=== PATIENT | female | born 1930 | race Caucasian/White ===

== ENCOUNTER 2017-06-23 04:08 | Inpatient (IN) | payer MEDICARE, OTHER ==
[~2017-06-23] VITALS: Ht 149.9 cm; Wt 41.2 kg
[2017-06-23] MEDS ORDERED: LISI-661 PO (04:31)
[2017-06-23] MEDS ORDERED: SITA1TBM4 PO (04:31)
[2017-06-23] MEDS ORDERED: VITAD50000 PO (04:31)
[2017-06-23] MEDS ORDERED: NIFE30TA26 PO (04:31)
[2017-06-23] MEDS ORDERED: OMEP20 PO (04:31)
[2017-06-23] MEDS ORDERED: OMEG-135 PO (04:31)
[2017-06-23] MEDS ORDERED: LEVO500 PO (04:31)
[2017-06-23] MEDS ORDERED: [UNRECOGNIZED DRUG - OTHER] INJ (04:31)
[2017-06-23 05:18] LABS: HEMATOCRIT 36.6 % (36-46); HEMOGLOBIN 12.3 g/dL (12.0-16.0); MEAN CORPUSCULAR HEMOGLOBIN 27.3 pg (26.0-34.0); MEAN CORPUSCULAR HGB CONC 33.5 G/dL (31.0-37.0); MEAN CORPUSCULAR VOLUME 82 fL (80-100); PLATELET COUNT (AUTO) 244 K/uL (150-450); RED BLOOD CELL COUNT(AUTO) 4.49 MIL/uL (4.00-5.20); RED CELL DISTRIBUTION WIDTH 13.6 % (11.5-14.5)
[2017-06-23 05:29] LABS: CALCIUM, TOTAL 9.2 mg/dL (8.8-10.5); CREATININE 1.41 mg/dL (0.60-1.30); POTASSIUM 4.2 mmol/L (3.5-5.1)
[2017-06-23 05:33] LABS: ALBUMIN 3.4 g/dL (3.4-5.0); BILIRUBIN,TOTAL 0.3 mg/dL (0.1-1.0); TOTAL PROTEIN, SERUM 7.8 g/dL (6.4-8.2)
[2017-06-23 05:45] LABS: BAND NEUTROPHILS % (MANUAL) 14 % (1-5); EOSINOPHILS % (MANUAL) 1 % (1-6); LYMPHOCYTES % (MANUAL) 15 % (22-44); MONOCYTES % (MANUAL) 1 % (2-9); SEGMENTED NEUTROPHILS % 69 % (40-70)
[2017-06-23] MEDS ORDERED: MetroNIDAZOLE 500 MG/NACL 100 ML IV ONE (06:30)
[2017-06-23] MEDS ORDERED: SODIUM CHLORIDE 0.9% 1,000 ML IV ONE ×3 (06:30→08:15)
[2017-06-23] MEDS ORDERED: CIPROFLOXACIN 400 MG/D5% WATER 200 ML IV ONE (06:30)
[2017-06-23 07:32] LABS: LACTIC ACID 3.4 mmol/L (0.4-2.0)
[2017-06-23] MEDS ORDERED: 0.9% SODIUM CHLORIDE 10 ML SYRINGE IVP PRN (08:45)
[2017-06-23] MEDS ORDERED: ONDANSETRON HCL 4 MG/2 ML VIAL IVP PRN ×2 (08:45→17:15)
[2017-06-23] MEDS ORDERED: ACETAMINOPHEN 325 MG TABLET PO PRN ×2 (08:45→17:15)
[2017-06-23 10:01] LABS: APPEARANCE,URINE CLEAR (CLEAR); BILIRUBIN,URINE NEGATIVE (NEGATIVE); GLUCOSE, URINE (UA) >=1000 mg/dL (NEGATIVE); KETONES,URINE NEGATIVE (NEGATIVE); LEUKOCYTE ESTERASE ,URINE NEGATIVE (NEGATIVE); NITRATE,URINE POSITIVE (NEGATIVE); OCCULT BLOOD,URINE TRACE (NEGATIVE); PROTEIN,URINE NEGATIVE (NEGATIVE); UROBILINOGEN,URINE 0.2 mg/dL (<=1.0)
[2017-06-23 10:29] LABS: BACTERIA,URINE Many /HPF (None Seen); SQUAMOUS EPITHELIAL CELL,UR Few /LPF (None Seen)
[2017-06-23] MEDS ORDERED: INSU100C14 SQ (11:24)
[2017-06-23 11:55] VITALS: BP 111/55
[2017-06-23 14:59] VITALS: BP 108/51
[2017-06-23] MEDS ORDERED: INFLUENZA VIRUS VACCINE QVS 2017-18 (3YR+)/PF 60 MCG/0.5 ML SYRINGE IM ONE (16:00)
[2017-06-23] MEDS ORDERED: MAGNESIUM HYDROXIDE SUSPENSION 30 ML UDCUP PO PRN (17:15)
[2017-06-23] MEDS ORDERED: ZOLPIDEM TARTRATE 5 MG TABLET PO PRN (17:15)
[2017-06-23] MEDS ORDERED: BISACODYL 10 MG RECTAL RECTAL SUPPOSITORY PR PRN (17:15)
[2017-06-23] MEDS ORDERED: MORPHINE SULFATE 2 MG/ML SYRINGE IVP PRN (17:15)
[2017-06-23] MEDS ORDERED: IPRATROPIUM BROMIDE 0.5 MG/2.5 ML NEB SOLUTION NEB PRN (17:15)
[2017-06-23] MEDS ORDERED: ALBUTEROL SULFATE 2.5 MG/0.5 ML NEB SOLUTION NEB PRN (17:15)
[2017-06-23] MEDS: CefTRIAXone 1 GM/DEXTROSE 50 ML IV SCH (19:03)
[2017-06-23 19:39] VITALS: BP 95/47
[2017-06-23] MEDS ORDERED: DEXTROSE 50%-WATER 25 GM/50 ML SYRINGE IVP PRN (20:00)
[2017-06-23 20:13] LABS: GLUCOMETER DEV NAME(LOC) 5S 2N; GLUCOSE,POINT OF CARE 271 MG/DL (70-110)
[2017-06-23 20:13] LABS: GLUCOMETER DEV NAME(LOC) 5S 2N; GLUCOSE,POINT OF CARE 297 MG/DL (70-110)
[2017-06-23] MEDS: DOCUSATE SODIUM 100 MG CAPSULE PO SCH (21:14)
[2017-06-23] MEDS: MetroNIDAZOLE 500 MG/NACL 100 ML IV SCH (21:14)
[2017-06-23] MEDS: HYDROCODONE/ACETAMINOPHEN 5-325 MG TABLET PO PRN (21:19)
[2017-06-23] MEDS: INSULIN ASPART 100 UNITS/ML SQ PRN (21:41)
[2017-06-23 23:47] VITALS: BP 95/49
[2017-06-24] MEDS: HEPARIN SODIUM,PORCINE 5,000 UNITS/ML VIAL SQ SCH ×4 (00:17→23:31)
[2017-06-24] MEDS: MetroNIDAZOLE 500 MG/NACL 100 ML IV SCH ×3 (04:48→21:29)
[2017-06-24] MEDS: HYDROCODONE/ACETAMINOPHEN 5-325 MG TABLET PO PRN (05:14)
[2017-06-24 05:18] VITALS: BP 100/63
[2017-06-24] MEDS: INSULIN ASPART 100 UNITS/ML SQ PRN ×4 (06:08→20:25)
[2017-06-24 07:25] VITALS: BP 95/48
[2017-06-24] MEDS: OMEGA-3/DHA/EPA/FISH OIL 1,000 MG CAPSULE PO SCH (07:32)
[2017-06-24] MEDS: PANTOPRAZOLE SODIUM 40 MG/VIAL IVP SCH (07:32)
[2017-06-24] MEDS: DOCUSATE SODIUM 100 MG CAPSULE PO SCH ×2 (07:32→20:22)
[2017-06-24] MEDS: LISINOPRIL 10 MG TABLET PO SCH (07:33)
[2017-06-24 07:41] LABS: EOSINOPHILS % (AUTO) 0.4 % (1.0-6.0); HEMATOCRIT 30.7 % (36-46); HEMOGLOBIN 10.3 g/dL (12.0-16.0); LYMPHOCYTES % (AUTO) 5.8 % (22.0-44.0); MEAN CORPUSCULAR HEMOGLOBIN 27.5 pg (26.0-34.0); MEAN CORPUSCULAR HGB CONC 33.4 G/dL (31.0-37.0); MEAN CORPUSCULAR VOLUME 82 fL (80-100); MONOCYTES # (AUTO) 0.9 K/uL (0.1-1.0); NEUTROPHILS # (AUTO) 15.1 K/uL (1.8-7.7); PLATELET COUNT (AUTO) 179 K/uL (150-450); RED BLOOD CELL COUNT(AUTO) 3.73 MIL/uL (4.00-5.20); RED CELL DISTRIBUTION WIDTH 14.2 % (11.5-14.5)
[2017-06-24 07:52] LABS: ALBUMIN 2.4 g/dL (3.4-5.0); BILIRUBIN,TOTAL 0.3 mg/dL (0.1-1.0); CALCIUM, TOTAL 7.8 mg/dL (8.8-10.5); CREATININE 1.19 mg/dL (0.60-1.30); POTASSIUM 3.6 mmol/L (3.5-5.1); TOTAL PROTEIN, SERUM 5.8 g/dL (6.4-8.2)
[2017-06-24 08:15] LABS: NEUTROPHILS % (AUTO) 88.8 % (40.0-70.0)
[2017-06-24] MEDS ORDERED: OMEPRAZOLE 20 MG CAPSULE PO SCH (09:00)
[2017-06-24 11:05] VITALS: BP 99/51
[2017-06-24 15:32] VITALS: BP 99/52
[2017-06-24 17:20] LABS: PLATELET MORPHOLOGY COMMENT NORMAL
[2017-06-24] MEDS: CefTRIAXone 1 GM/DEXTROSE 50 ML IV SCH (17:24)
[2017-06-24 19:37] VITALS: BP 130/67
[2017-06-24 23:40] VITALS: BP 117/56
[2017-06-25 03:38] LABS: GLUCOMETER DEV NAME(LOC) 5S 1L; GLUCOSE,POINT OF CARE 168 MG/DL (70-110)
[2017-06-25] MEDS: MetroNIDAZOLE 500 MG/NACL 100 ML IV SCH ×3 (03:38→21:07)
[2017-06-25 03:39] LABS: GLUCOMETER DEV NAME(LOC) 5S 1L; GLUCOSE,POINT OF CARE 176 MG/DL (70-110)
[2017-06-25 04:40] VITALS: BP 130/64
[2017-06-25] MEDS: INSULIN ASPART 100 UNITS/ML SQ PRN ×4 (06:20→21:19)
[2017-06-25 07:25] VITALS: BP 123/55
[2017-06-25] MEDS: HEPARIN SODIUM,PORCINE 5,000 UNITS/ML VIAL SQ SCH ×2 (09:03→17:58)
[2017-06-25] MEDS: PANTOPRAZOLE SODIUM 40 MG/VIAL IVP SCH (09:03)
[2017-06-25] MEDS: DOCUSATE SODIUM 100 MG CAPSULE PO SCH ×2 (09:03→21:07)
[2017-06-25] MEDS: LISINOPRIL 10 MG TABLET PO SCH (09:03)
[2017-06-25] MEDS: OMEGA-3/DHA/EPA/FISH OIL 1,000 MG CAPSULE PO SCH (09:03)
[2017-06-25 10:08] LABS: BASOPHILS % (AUTO) 0.3 % (0.0-2.0); EOSINOPHILS % (AUTO) 0.8 % (1.0-6.0); HEMATOCRIT 31.4 % (36-46); HEMOGLOBIN 10.4 g/dL (12.0-16.0); LYMPHOCYTES # (AUTO) 1.2 K/uL (1.0-4.8); LYMPHOCYTES % (AUTO) 8.9 % (22.0-44.0); MEAN CORPUSCULAR HEMOGLOBIN 27.1 pg (26.0-34.0); MEAN CORPUSCULAR HGB CONC 33.1 G/dL (31.0-37.0); MEAN CORPUSCULAR VOLUME 82 fL (80-100); MONOCYTES % (AUTO) 7.2 % (2.0-9.0); NEUTROPHILS # (AUTO) 11.1 K/uL (1.8-7.7); NEUTROPHILS % (AUTO) 82.8 % (40.0-70.0); PLATELET COUNT (AUTO) 186 K/uL (150-450); RED BLOOD CELL COUNT(AUTO) 3.84 MIL/uL (4.00-5.20); RED CELL DISTRIBUTION WIDTH 14.3 % (11.5-14.5)
[2017-06-25 10:17] LABS: CALCIUM, TOTAL 7.9 mg/dL (8.8-10.5); CREATININE 1.05 mg/dL (0.60-1.30); POTASSIUM 3.3 mmol/L (3.5-5.1)
[2017-06-25 11:28] VITALS: BP 131/65
[2017-06-25 15:18] VITALS: BP 144/67
[2017-06-25 16:38] LABS: GLUCOMETER DEV NAME(LOC) 5S 2N; GLUCOSE,POINT OF CARE 230 MG/DL (70-110)
[2017-06-25 16:38] LABS: GLUCOMETER DEV NAME(LOC) 5S 2N; GLUCOSE,POINT OF CARE 153 MG/DL (70-110)
[2017-06-25 16:38] LABS: GLUCOMETER DEV NAME(LOC) 5S 2N; GLUCOSE,POINT OF CARE 241 MG/DL (70-110)
[2017-06-25 16:38] LABS: GLUCOMETER DEV NAME(LOC) 5S 2N; GLUCOSE,POINT OF CARE 286 MG/DL (70-110)
[2017-06-25] MEDS ORDERED: POTASSIUM CHLORIDE 20 MEQ ER TABLET PO ONE (17:45)
[2017-06-25] MEDS: CefTRIAXone 1 GM/DEXTROSE 50 ML IV SCH (17:58)
[2017-06-25 19:57] VITALS: BP 157/77
[2017-06-25 20:12] LABS: GLUCOMETER DEV NAME(LOC) 5S 1L; GLUCOSE,POINT OF CARE 229 MG/DL (70-110)
[2017-06-25 23:22] VITALS: BP 135/58
[2017-06-26] MEDS: HEPARIN SODIUM,PORCINE 5,000 UNITS/ML VIAL SQ SCH ×3 (00:17→17:30)
[2017-06-26 02:54] LABS: APPEARANCE,URINE CLEAR (CLEAR); BILIRUBIN,URINE NEGATIVE (NEGATIVE); GLUCOSE, URINE (UA) NEGATIVE (NEGATIVE); KETONES,URINE NEGATIVE (NEGATIVE); LEUKOCYTE ESTERASE ,URINE NEGATIVE (NEGATIVE); NITRATE,URINE NEGATIVE (NEGATIVE); OCCULT BLOOD,URINE NEGATIVE (NEGATIVE); PH,URINE 6.5 (5.0-8.0); PROTEIN,URINE NEGATIVE (NEGATIVE); UROBILINOGEN,URINE 0.2 mg/dL (<=1.0)
[2017-06-26] MEDS: MetroNIDAZOLE 500 MG/NACL 100 ML IV SCH ×2 (03:43→12:10)
[2017-06-26 03:44] LABS: RBC,URINE 0-2 /HPF (0-2); WBC,URINE 0-2 /HPF (0-5)
[2017-06-26 03:45] LABS: BACTERIA,URINE None Seen /HPF (None Seen)
[2017-06-26 04:41] VITALS: BP 139/69
[2017-06-26] MEDS: INSULIN ASPART 100 UNITS/ML SQ PRN ×3 (06:02→17:36)
[2017-06-26 07:22] VITALS: BP 147/62
[2017-06-26] MEDS: PANTOPRAZOLE SODIUM 40 MG/VIAL IVP SCH (09:14)
[2017-06-26] MEDS: LISINOPRIL 10 MG TABLET PO SCH (09:14)
[2017-06-26] MEDS: DOCUSATE SODIUM 100 MG CAPSULE PO SCH (09:14)
[2017-06-26] MEDS: OMEGA-3/DHA/EPA/FISH OIL 1,000 MG CAPSULE PO SCH (09:14)
[2017-06-26 11:03] VITALS: BP 140/71
[2017-06-26 15:04] VITALS: BP 127/59
[2017-06-26] MEDS: CefTRIAXone 1 GM/DEXTROSE 50 ML IV SCH (18:00)
[2017-06-26 19:23] LABS: GLUCOMETER DEV NAME(LOC) 5S 2N; GLUCOSE,POINT OF CARE 162 MG/DL (70-110)
[2017-06-26 19:27] LABS: GLUCOMETER DEV NAME(LOC) 5S 2N; GLUCOSE,POINT OF CARE 192 MG/DL (70-110)
[2017-06-28 15:33] LABS: GLUCOMETER DEV NAME(LOC) 5S 1L; GLUCOSE,POINT OF CARE 148 MG/DL (70-110)
[2017-06-28 15:33] LABS: GLUCOMETER DEV NAME(LOC) 5S 1L; GLUCOSE,POINT OF CARE 269 MG/DL (70-110)
[2017-06-28 15:33] LABS: GLUCOMETER DEV NAME(LOC) 5S 1L; GLUCOSE,POINT OF CARE 198 MG/DL (70-110)
[2017-06-30] MEDS ORDERED: CHOLECALCIFEROL (VIT D3) 50,000 UNITS CAPSULE PO SCH (09:00)
== END 2017-06-26 18:45 | disposition home or self-care (01) | DRG 871 ==
LOC: EMS 04:10 → 5S 08:54
PROVIDERS: ADMIT Hospitalist; ATTEND Hospitalist
PROC: 3E0234Z Introduction of Serum, Toxoid and Vaccine into Muscle, Percutaneous Approach (ICD-10-PCS; principal; 2017-06-23)
DX: A41.9 Sepsis, unspecified organism (principal); I21.A1 Myocardial infarction type 2; E11.9 Type 2 diabetes mellitus without complications; N39.0 Urinary tract infection, site not specified; N13.6 Pyonephrosis; Z68.1 Body mass index [BMI] 19.9 or less, adult; I10 Essential (primary) hypertension; K21.9 Gastro-esophageal reflux disease without esophagitis; B96.89 Other specified bacterial agents as the cause of diseases classified elsewhere; M81.0 Age-related osteoporosis without current pathological fracture; Z23 Encounter for immunization; Z79.899 Other long term (current) drug therapy; Z79.4 Long term (current) use of insulin
CPT/HCPCS: 74176; 76770; 82962; 83605; 84132; 87040; 87086; 90471; 93005; 93306; 96361; 96365; 96366; 96375; 99291; C9113; J0696; J0744; J1644; J2405; J3490; J7030